=== PATIENT | female | born 1960 | race Caucasian/White ===

== ENCOUNTER → 2018-11-22 | Outpatient (CLI) | payer BC ==
[2015-07-22 13:27] VITALS: BP 110/58
[~2018-11-22] MED LIST: DARI15TA3 PO; ESTR1TAB15 PO; LACT1CAP6 PO; METO-247 PO; METO100T7 PO; NARA2.5T8 PO; PREG75CA PO; PROC5TAB14 PO; TAMS0.4C97 PO; TOPI100T42 PO
--- NOTE | 2018-11-22 14:00 | KCIC ---
Neck soft tissue ultrasound 11/22/2018 INDICATION: Lump in the right neck and clavicle. COMPARISON: None available. TECHNIQUE: Sonographic evaluation of the right clavicular region was performed. FINDINGS: There is no suspicious cystic or solid mass identified adjacent to the clavicle. No fluid collection is identified associated with the clavicle. There is no skin thickening. Visualized vessels appear patent. IMPRESSION: No significant abnormalities identified in the region imaged. Electronically signed by: Kylah Carroll MD (11/22/2018 1:57 PM) [id number]
== END | disposition home or self-care (01) ==
LOC: KCIC US 10:36
PROVIDERS: ATTEND Family Medicine
DX: R22.1 Localized swelling, mass and lump, neck (principal)
CPT/HCPCS: 76536